=== PATIENT | male | born 1975 | race Caucasian/White ===

== ENCOUNTER 2022-03-21 11:13 | Outpatient (REF) | payer OTHER, SELFPAY ==
[2022-03-21 20:29] LABS: ALT 36 U/L (16-63); AST 12 U/L (15-37); Albumin 4.2 g/dL (3.4-5.0); Alkaline Phosphatase 99 U/L (46-116); Bilirubin, Direct 0.1 mg/dL (0.0-0.2); Bilirubin, Total 0.3 mg/dL (0.2-1.0)
[2022-03-23 10:43] LABS: Hepatitis C Ab w Rflx HCV PCR Negative (Negative)
== END 2022-03-21 11:14 | disposition home or self-care (01) ==
LOC: NCHCN 11:13
PROVIDERS: Visit Provider Nurse Practitioner Family
DX: R79.89 Other specified abnormal findings of blood chemistry (principal)
CPT/HCPCS: 80076; 86803

== ENCOUNTER 2022-10-30 13:09 | Outpatient (REF) | payer SELFPAY ==
[2022-10-30 20:05] LABS: HCT 41.4 % (40.0-50.0); HGB 14.1 g/dL (13.5-17.5); MCH 32.1 pg (27.0-33.0); MCHC 34.1 % (32.0-36.0); MCV 94 fL (80-95); MPV 9.4 fL (8.0-11.0); Platelet Count 344 10^3/uL (130-400); RBC 4.39 10^6/uL (4.36-5.78); RDW 13.2 % (11.8-14.1); RDW-SD 45.9 fL; WBC 9.37 10^3/uL (4.4-10.8)
[2022-10-30 20:24] LABS: ALT 29 U/L (16-63); AST 19 U/L (15-37); Albumin 4.4 g/dL (3.4-5.0); Alkaline Phosphatase 75 U/L (46-116); Anion Gap 9.4 mmol/L (3-11); BUN 19 mg/dL (7-18); Bilirubin, Total 0.7 mg/dL (0.2-1.0); CO2 28.6 mmol/L (21.0-32.0); CREATININE 0.9 mg/dL (0.70-1.30); Calcium 9.2 mg/dL (8.5-10.1); Calculated LDL 148 mg/dL (<100); Chloride 104 mmol/L (98-107); Cholesterol 218 mg/dL (<200); Estimated GFR 105.35 (mL/min/1.73m2); Glucose 108 mg/dL (74-106); HDL Cholesterol 45 mg/dL (40-60); Potassium 4.7 mmol/L (3.5-5.1); Sodium 142 mmol/L (136-145); Triglyceride 129 mg/dL (<150)
== END 2022-10-30 13:10 | disposition home or self-care (01) ==
LOC: NCHCN 13:09
PROVIDERS: PCP Nurse Practitioner Family; Visit Provider Nurse Practitioner Family
DX: E78.5 Hyperlipidemia, unspecified (principal); R73.03 Prediabetes
CPT/HCPCS: 80053; 80061; 85027